=== PATIENT | male | born 1990 | race Caucasian/White ===

== ENCOUNTER 2017-06-16 20:00 | Emergency (ER) | payer SELFPAY ==
[~2017-06-16] VITALS: Ht 180.3 cm; Wt 122.7 kg
[2017-06-16 20:21] VITALS: BP 145/83; RESP 16; O2SAT 100
--- NOTE | 2017-06-16 20:32 | ED.REPORT ---
HPI-General Illness Date of Service Jun 16, 2017 ED Provider: Montez Matthew DO Pt is an otherwise healthy 26 year old male who presents to the ED complaining of left ear pain onset 2 weeks ago. He denies ear ringing, hearing loss, and any other symptoms. Nursing Notes Stated Complaint: EAR PAIN Chief Complaint: ENT & Mouth Nursing Notes Reviewed: Yes Allergies: Coded Allergies: No Known Allergies (Unverified , 06/16/17) General Time Seen by MD: 20:31 Chief Complaint Ear pain Hx Obtained From: Patient Arrived By: Walk-in Onset Occurred: More than a week ago... (2 weeks) Symptom Duration: Since onset Location: : Ear left Quality: Painful Radiation: : Does not radiate Severity: Current: Moderate Severity: Maximum: Moderate Recent Healthcare: No recent doctor visit, No recent hospitalization Similar Sx Previous: No Past Medical History Past Medical History None reported - healthy Past Surgical History Denies Smoking History Current Every Day Smoker Social History Alcohol Use: "Social" Drug Use: Other Ambulatory Status Independent Review of Systems Full Review of Systems Ears / Nose / Throat: Reports: Earache left, Denies: Ear ringing bilateral, Ear ringing left, Ear ringing right, Earache right, Hearing loss bilateral, Hearing loss left, Hearing loss right Complete sys rev & neg: except as marked. Physical Exam Vital Signs Vital Signs Date Time Temp Pulse Resp B/P Pulse Ox O2 Delivery O2 Flow Rate FiO2 06/16/17 20:21 36.9 106 16 145/83 100 Room Air Initial VS: Reviewed Head / Eyes: Atraumatic, Normocephalic Neck: Supple, Full range of motion Respiratory: Breath sounds normal, Clear to auscultation, No respiratory distress Cardiovascular: Regular rate & rhythm, Heart sounds normal, Intact distal pulses Abdomen / GI: Soft, Non-tender Extremities: Vascular intact, Neuro intact Skin: Warm, Dry, No cyanosis Neurologic: Alert, Oriented, Nonfocal Psychiatric: Mood/affect normal, Behavior normal General/Constitutional: Awake, Alert ENT: Airway patent Erythematous tympanic membrane with yellow effusion. Erythema and abrasions in external auditory canal Re-Eval/Medical Decision Source of Hx: Old records Time of Eval: 21:30 Evaluation: Abdomen soft/non-tender Re-Evaluation/Progress Note: Informed pt of plan for discharge. Pt understands and agrees with plan for discharge. F/U instructions and RTER warnings given. All questions addressed. Counseled Regarding: Diagnosis, Need for follow-up, When/why to return to ED Discharge & Departure Primary Impression: Otitis externa Otitis externa type: unspecified type Laterality: left Chronicity: acute Qualified Code: H60.502 - Unspecified acute noninfective otitis externa, left ear Additional Impression: Otitis media Otitis media type: unspecified nonsuppurative Laterality: left Qualified Code: H65.92 - Unspecified nonsuppurative otitis media, left ear Disposition: Home Discharge Condition All VS Reviewed: Yes Condition: Stable Patient Instructions: Otitis Externa (ED), Serous Otitis Media (ED) Additional Instructions: It looks like you have an outer and inner ear infection. Take Augmentin 2x daily for 10 days. Cipro Otics 10 drops for 7 days. [place] 1-2 every 6 hours as needed. Do not drive or drink alcohol or consume acetaminophen while on [place]. Do not clean your ears with Q-tips. Call the referral ENT or your primary care provider on Saturday for a follow up appointment next week. Return to the Emergency Department for any new or worrisome symptoms. Referrals: Anselmo Logan MD [facility] Scribe Attestation Portions of this note were transcribed by Izzy Hodge. I, Dr. Matthew personally performed the history, physical exam and medical decision-making; I reviewed and confirmed the accuracy of the information in the transcribed note. Signed by : Manny Hall, 06/16/17. copies to: Anselmo Logan MD; [facility] Montez Matthew DO Jun 16, 2017 20:31 Izzy Diallo Jun 16, 2017 21:29
[2017-06-16] MEDS ORDERED: Amoxicillin-Clav 875-125 mg Tablet PO ONE (21:30)
[2017-06-16] MEDS ORDERED: Ciprofloxacin-Dexamethasone 7.5 mL Otic Susp LEFT_EAR SCH ×2 (21:30→21:45)
== END 2017-06-16 21:53 | disposition home or self-care (01) ==
LOC: SED 20:00
DX: H60.502 Unspecified acute noninfective otitis externa, left ear (principal); H65.92 Unspecified nonsuppurative otitis media, left ear; F17.200 Nicotine dependence, unspecified, uncomplicated